=== PATIENT | female | born 1965 ===

== ENCOUNTER 2019-02-17 06:09 | Emergency (ER) | payer OTHER ==
[~2019-02-17] VITALS: Ht 157.5 cm; Wt 73.9 kg
[2019-02-17] MEDS ORDERED: SEROQUEL50 MG (06:21)
[2019-02-17] MEDS ORDERED: LEXAPRO20 MG (06:21)
[2019-02-17] MEDS ORDERED: CLONAZEPAM2 MG (06:21)
[2019-02-17] MEDS ORDERED: RESTORIL30 M1 (06:22)
[2019-02-17] MEDS ORDERED: ZANTAC300 MG (06:22)
[2019-02-17] MEDS ORDERED: PROTONIX40 MG (06:23)
== END 2019-02-17 11:02 | disposition home or self-care (01) ==
LOC: ER 06:09 → EDBD 06:21 → ER 06:21
DX: R10.11 Right upper quadrant pain (principal)

== ENCOUNTER 2019-04-22 09:44 | Day surgery (SDC) | payer OTHER ==
[~2019-04-22 09:44] MED LIST: CLONAZEPAM2 MG; LEXAPRO20 MG; PROTONIX40 MG; RESTORIL30 M1; SEROQUEL50 MG; ZANTAC300 MG
== END 2019-04-22 14:30 | disposition home or self-care (01) ==
LOC: AMB-ENDOS 09:44
DX: D12.0 Benign neoplasm of cecum (principal); D12.3 Benign neoplasm of transverse colon

== ENCOUNTER 2022-05-31 08:12 | Emergency (ER) | payer OTHER ==
[~2022-05-31] VITALS: Ht 157.5 cm; Wt 78.9 kg
== END 2022-05-31 17:56 | disposition home or self-care (01) ==
LOC: ER 08:12
DX: R10.9 Unspecified abdominal pain (principal); F32.A Depression, unspecified
CPT/HCPCS: 36415; 74177; Q9965

== ENCOUNTER 2022-10-01 05:30 | Emergency (ER) | payer OTHER ==
[~2022-10-01] VITALS: Ht 157.5 cm; Wt 74.8 kg
== END 2022-10-01 08:10 | disposition home or self-care (01) ==
LOC: ER 05:30
DX: N30.90 Cystitis, unspecified without hematuria (principal)